=== PATIENT | male | born 1985 | race Caucasian/White ===

== ENCOUNTER 2022-03-25 05:23 | Emergency (ER) | payer SELFPAY ==
[2022-03-25 05:48] VITALS: BP 110/72; PULSE 72; TEMP 98.2; BMI 32.9
[2022-03-25] MEDS ORDERED: FLUORESCEIN NA 1 EA STRIP OD ONE (07:15)
[2022-03-25] MEDS ORDERED: TETRACAINE 0.5% HCL 0.6ML DROPPER.BOTTLE OD ONE (07:15)
[2022-03-25] MEDS ORDERED: FLUORESCEIN NA 1 EA STRIP ONE (07:24)
[2022-03-25] MEDS ORDERED: TETRACAINE 0.5% OPHTH SOLN 2 ML BOTTLE ONE (07:24)
== END 2022-03-25 10:14 | disposition home or self-care (01) ==
LOC: JER 05:23
DX: T15.01XA Foreign body in cornea, right eye, initial encounter (principal); H16.021 Ring corneal ulcer, right eye
CPT/HCPCS: 99283-25

== ENCOUNTER 2022-08-07 23:57 | Emergency (ER) | payer OTHER ==
[2022-08-08 00:28] VITALS: BP 123/77; PULSE 87; RESP 18; TEMP 98.1; BMI 32.9
[2022-08-08 01:04] LABS: BASO % 0.8 % (0-2.0); EOS % 1.3 % (0-4.5); HEMATOCRIT 39.7 % (35.4-49); HEMOGLOBIN 13.6 GM/dL (11.7-16.9); LYMPH % 14.8 % (8-40); MCH 31.8 pg (25.7-33.7); MCHC 34.2 g/dl (32.0-35.9); MEAN CELL VOLUME 92.9 fl (80-96); MEAN PLT VOLUME 8.1 fl (7.5-11.1); MONO % 7.8 % (3.8-10.2); NEUT % 75.3 % (42.8-82.8); PLATELET COUNT 258 10^3/uL (134-434); RBC 4.27 M/mm3 (4.00-5.60); RDW 13.4 % (11.9-15.9); WHITE BLOOD COUNT 13.3 K/mm3 (4.0-10.0)
[2022-08-08] MEDS ORDERED: ACETAMINOPHEN 1000 MG/100 ML BAG IVPB ONE (01:15)
[2022-08-08] MEDS ORDERED: SODIUM CHLORIDE 1,000 ML IV STA (01:15)
[2022-08-08 01:27] LABS: CALCIUM 8.6 mg/dL (8.5-10.1)
[2022-08-08 01:28] LABS: ALBUMIN 3.7 g/dl (3.4-5.0); BLOOD UREA NITROGEN 17.4 mg/dL (7-18)
[2022-08-08] MEDS ORDERED: ACETAMINOPHEN INJECTION 100 ML IVPB ONE (01:29)
[2022-08-08 01:31] LABS: CREATININE 0.9 mg/dL (0.55-1.3)
[2022-08-08 01:32] LABS: BILIRUBIN,TOTAL 0.2 mg/dL (0.2-1)
[2022-08-08 01:57] LABS: PH,URINE 5.5 (5.0-8.0); URINE APPEARANCE CLEAR; URINE BILIRUBIN NEGATIVE (NEGATIVE); URINE COLOR YELLOW; URINE GLUCOSE (UA) NEGATIVE (NEGATIVE); URINE KETONE TRACE (NEGATIVE); URINE LEUK ESTERASE NEGATIVE (NEGATIVE); URINE NITRITE NEGATIVE (NEGATIVE); URINE PROTEIN NEGATIVE (NEGATIVE); URINE UROBILINOGEN 0.2 mg/dL (0.2-1.0)
[2022-08-08] MEDS ORDERED: metroNIDAZOLE 250 MG TABLET PO ONE (02:45)
[2022-08-08] MEDS ORDERED: CIPROFLOXACIN 500 MG TABLET (RESTRICTED TO ID) PO ONE (02:45)
[2022-08-08] MEDS ORDERED: metroNIDAZOLE 250 MG TABLET ONE (02:55)
== END 2022-08-08 03:04 | disposition home or self-care (01) ==
LOC: JER 23:57
PROC: 3E033GC Introduction of Other Therapeutic Substance into Peripheral Vein, Percutaneous Approach (ICD-10-PCS; principal; 2022-08-07)
DX: K57.92 Diverticulitis of intestine, part unspecified, without perforation or abscess without bleeding (principal)
CPT/HCPCS: 0241U-QW; 36415; 74177-TC; 80053; 81003; 83605; 83690; 85025; 87086; 93005; 93010; 99285-25; Q9967